=== PATIENT | female | born 1955 ===

== ENCOUNTER 2017-04-17 20:31 | Emergency (ER) | payer OTHER ==
--- NOTE | 2017-04-17 21:07 | C.PDOC ---
History Of Present Illness Patient presents to the ER with a complaint of numbness over the right forehead and right scalp area since yesterday at approximately 22:00. Denies fever, chills, nausea, vomiting, slurred speech, change in vision, or weakness. Time Seen by Provider: 04/17/17 21:07 Chief Complaint (Nursing): Weakness/Neurological Deficit History Per: Patient History/Exam Limitations: no limitations Onset/Duration Of Symptoms: Days Current Symptoms Are (Timing): Still Present Activity At Onset Of Symptoms: Other (Not known) Seizure Or Post-ictal Symptoms: None Possible Causative Factor(s): Other (Not known) Fall Associated With With Symptoms: No Severity: Mild Pain Scale Rating Of: 3 Recent travel outside of the [place]: No - Symptoms Of CVA Associated Symptoms: denies: Impaired Speech, Seizure Activity, New Vision Deficit(Left), New Vision Deficit(Right), Decreased Ability To Walk, New Confusion Recent Head Trauma: No Past Medical History Reviewed: Historical Data, Nursing Documentation, Vital Signs Vital Signs: Last Vital Signs Temp 98.2 F 04/17/17 23:08 Pulse 78 04/17/17 23:08 Resp 20 04/17/17 23:08 BP 95/61 L 04/17/17 23:08 Pulse Ox 96 04/17/17 23:08 - Medical History PMH: No Chronic Diseases Surgical History: No Surg Hx Family History: States: No Known Family Hx - Social History Hx Alcohol Use: No Hx Substance Use: No - Immunization History Hx Tetanus Toxoid Vaccination: No Hx Influenza Vaccination: No Hx Pneumococcal Vaccination: No Review Of Systems Constitutional: Negative for: Fever, Chills Eyes: Negative for: Vision Change Gastrointestinal: Negative for: Nausea, Vomiting Neurological: Positive for: Numbness (Right forehead, right scalp). Negative for: Change in Speech Physical Exam - Physical Exam Appears: Non-toxic, No Acute Distress Skin: Warm, Dry Head: Normacephalic Eye(s): bilateral: Normal Inspection (No nystagmus), PERRL, EOMI Oral Mucosa: Moist Chest: Symmetrical, No Tenderness Cardiovascular: Rhythm Regular Respiratory: No Rales, No Rhonchi, No Wheezing Gastrointestinal/Abdominal: Soft, No Tenderness Neurological/Psych: Oriented x3, Other (Sensory intact) ED Course And Treatment - Laboratory Results Result Diagrams: 04/17/17 21:20 04/17/17 21:20 ECG: Interpreted By Me, Viewed By Me ECG Rhythm: Sinus Rhythm (85), Nonspecific Changes O2 Sat by Pulse Oximetry: 98 Pulse Ox Interpretation: Normal Progress Note: CT head, EKG, blood work, urinalysis, and CXR ordered. Reevaluation Time: 23:32 Reassessment Condition: Improved NIHSS Stroke Scale - Date/Time Evaluation Performed Date Performed: 04/17/17 Time Performed: 21:00 When Was NIHSS Performed: Baseline - How Severe is the Stoke Level of Consciousness: 0=Alert LOC to Questions: 0=Both comments correct LOC to commands: 0=Obeys both correctly Best Gaze: 0=Normal Visual: 0=No visual loss Facial: 0=Normal Motor Arm - Left: 0=No drift Motor Arm - Right: 0=No drift Motor Leg - Left: 0=No drift Motor Leg - Right: 0=No drift Limb Ataxia: 0=Absent Sensory: 0=Normal Best Language: 0=No aphasia Dysarthia: 0=Normal articulation Extinction & Inattention (Neglect): 0=Normal, no object Score: 0 Severity Of Stroke: 0= No Stroke Medical Decision Making Medical Decision Making: Upon provider reevaluation patient is feeling better, is medically stable, and requires no further treatment in the ED at this time. Patient will be discharged home with Rx for zofran . Counseling was provided and all questions were answered regarding diagnosis and need for follow up with dr srivastava. There is agreement to discharge plan. Return if symptoms persist or worsen. Disposition Counseled Patient/Family Regarding: Studies Performed, Diagnosis, Need For Followup, Rx Given - Disposition Referrals: Tom Srivastava MD [Medical Doctor] - Disposition: HOME/ ROUTINE Disposition Time: 21:07 Condition: FAIR Additional Instructions: Please return if symptoms recur Prescriptions: Naproxen [Naprosyn] 1 tab PO BID PRN #14 tab PRN Reason: Pain Ondansetron ODT [Zofran ODT] 1 odt PO BID PRN #6 odt PRN Reason: Nausea/Vomiting Instructions: Acute Headache (DC) Forms: [employer] (Uzbek) Print Language: TAJIK - Clinical Impression Clinical Impression: Headache, Paresthesia - Scribe Statement The provider has reviewed the documentation as recorded by the Scriblouise Andres All medical record entries made by the Scribe were at my direction and personally dictated by me. I have reviewed the chart and agree that the record accurately reflects my personal performance of the history, physical exam, medical decision making, and the department course for this patient. I have also personally directed, reviewed, and agree with the discharge instructions and disposition.
[2017-04-17 21:23] LABS: BASO % 0.6 % (0.0-2.0); EOS # 0.3 K/uL (0.0-0.7); EOS % 3.7 % (0.0-4.0); HEMATOCRIT 39.1 % (34.0-47.0); LYMPH # 3.5 K/uL (1.0-4.3); LYMPH % 44.3 % (20.0-40.0); MEAN CELL VOLUME 86.9 fL (81.0-99.0); MEAN CORPUSCULAR HEMOGLOBIN 29.1 pg (27.0-31.0); MEAN CORPUSCULAR HGB CONC 33.5 g/dL (33.0-37.0); MEAN PLATELET VOLUME 7.2 fL (7.2-11.7); MONO # 0.6 K/uL (0.0-0.8); MONO % 7.6 % (0.0-10.0); NRBC % 0.1 % (0.0-2.0); RED CELL DISTRIBUTION WIDTH 13.7 % (11.5-14.5)
[2017-04-17 21:32] LABS: INR 1.1
[2017-04-17 21:35] LABS: ALKALINE PHOSPHATASE 73 U/L (38-126); ALT/SGPT 88 U/L (9-52); AST/SGOT 46 U/L (14-36); BILIRUBIN,TOTAL 0.3 mg/dL (0.2-1.3); BLOOD UREA NITROGEN 18 mg/dL (7-17); CALCIUM 7.9 mg/dl (8.6-10.4); CARBON DIOXIDE 25 mmol/L (22-30); CHLORIDE 106 mmol/L (98-107); GFR AFRICAN-AMERICAN > 60; GLUCOSE,RANDOM 150 mg/dL (65-105); POTASSIUM 3.5 mmol/L (3.6-5.2); SODIUM 140 mmol/L (132-148); TOTAL PROTEIN 8.1 g/dL (6.3-8.3)
[2017-04-17 22:20] LABS: RBC URINE 3 /hpf (0-3); URINE BACTERIA RARE (<OCC); URINE BILIRUBIN NEGATIVE (NEGATIVE); URINE COLOR Yellow (YELLOW); URINE GLUCOSE (UA) NORMAL (Normal); URINE KETONE NEGATIVE (NEGATIVE); URINE LEUKOCYTE ESTERASE NEG Leu/uL (Negative); URINE PROTEIN NEGATIVE (NEGATIVE); URINE UROBILINOGEN NORMAL mg/dL (0.2-1.0); WBC URINE 1 /hpf (0-5)
--- NOTE | 2017-04-17 22:20 | CT ---
EXAM: CT Head Without Intravenous Contrast CLINICAL HISTORY: 61 years old, female; Signs and symptoms; Numbness / parasthesia; Right; Additional info: R/O bleed, r forehead paresthisias TECHNIQUE: Axial computed tomography images of the head/brain without intravenous contrast. All CT scans at this facility use one or more dose reduction techniques, viz.: automated exposure control; ma/kV adjustment per patient size (including targeted exams where dose is matched to indication; i.e. head); or iterative reconstruction technique. Coronal and sagittal reformatted images were created and reviewed. COMPARISON: No relevant prior studies available. FINDINGS: Brain: Mild atrophy. No intracranial hemorrhage. No mass. No definite edema. Ventricles: No hydrocephalus. Bones/joints: No acute fracture. Soft tissues: Unremarkable. Sinuses: No acute sinusitis. Mastoid air cells: No mastoid effusion. Orbits: Unremarkable as visualized. IMPRESSION: 1. No definite acute intracranial abnormality. Acute infarction may be CT occult within first 24 hours. If a focal deficit persists, consider followup CT or MRI for further evaluation.
[2017-04-17 22:21] LABS: URINE BLOOD TRACE (NEGATIVE)
[2017-04-17 23:40] VITALS: BP 100/60; PULSE 76; RESP 16; TEMP 98; O2SAT 100
--- NOTE | 2017-04-18 06:30 | RAD ---
PROCEDURE: CHEST RADIOGRAPH, 1 VIEW HISTORY: Shortness of breath COMPARISON: None available. FINDINGS: LUNGS: Clear. PLEURA: No pneumothorax or pleural fluid seen. CARDIOVASCULAR: Normal. OSSEOUS STRUCTURES: No significant abnormalities. VISUALIZED UPPER ABDOMEN: Normal. OTHER FINDINGS: None. IMPRESSION: No active disease.
--- NOTE | 2017-04-18 21:45 | CARD ---
APPROVED REPORT EKG Measurement Heart [id number] <Conclusion> Normal sinus rhythm Prolonged QT Abnormal ECG
== END 2017-04-17 23:51 | disposition home or self-care (01) ==
LOC: C.ER 20:31
DX: R20.0 Anesthesia of skin (principal); R51 Headache
CPT/HCPCS: 70450; 71010; 80053; 81001; 85025; 85610; 85730; 93005; 96374; 99285; J1885